=== PATIENT | female | born 1975 | race Caucasian/White ===

== ENCOUNTER 2018-05-27 19:15 | Emergency (ER) | payer BC ==
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
--- NOTE | 2018-05-28 08:49 | CR ---
Foot Comp Min 3V Lt CLINICAL HISTORY: Pain, first and second metatarsals FINDINGS: There is no acute fracture or dislocation within the foot. No destructive changes are prese nt. There is some mild narrowing at the first MTP joint. There is a small exostosis of the first dist al phalanx IMPRESSION: No acute bony process. Joint space narrowing first MTP joint Small exostosis off the first distal phalanx
== END 2018-05-27 21:49 | disposition home or self-care (01) ==
LOC: JP.ED 19:15
DX: S90.32XA Contusion of left foot, initial encounter (principal); Z79.899 Other long term (current) drug therapy; J45.909 Unspecified asthma, uncomplicated; I10 Essential (primary) hypertension; E03.9 Hypothyroidism, unspecified; Z88.8 Allergy status to other drugs, medicaments and biological substances; V19.88XA Pedal cyclist (driver) (passenger) injured in other specified transport accidents, initial encounter
CPT/HCPCS: 73630-26-LT; 73630-LT; 99284